=== PATIENT | male | born 1965 | race Caucasian/White ===

== ENCOUNTER 2023-08-01 19:13 | Emergency (ER) | payer OTHER, MEDICAID, SELFPAY ==
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
[2023-08-01 19:20] VITALS: BP 142/90; PULSE 52; O2SAT 100
[2023-08-01 19:23] VITALS: BP 152/69; PULSE 56; RESP 20; TEMP 36.6; O2SAT 99; BMI 32.3
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
[2023-08-01] MEDS: Ibuprofen 400 MG TABLET PO (20:50)
[2023-08-01] MEDS: Acetaminophen 325 MG TABLET 650 MG PO (20:50)
== END 2023-08-01 21:05 | disposition home or self-care (01) ==
PROVIDERS: Emergency Provider Student in an Organized Health Care Education/Training Program
DX: S80.02XA Contusion of left knee, initial encounter (principal); V43.62XA Car passenger injured in collision with other type car in traffic accident, initial encounter; Y93.89 Activity, other specified; Y92.414 Local residential or business street as the place of occurrence of the external cause; Y99.9 Unspecified external cause status
CPT/HCPCS: 73562; 73590; 99283